=== PATIENT | male | born 1985 | race African-American/Black ===

== ENCOUNTER 2021-08-01 17:31 | Emergency (ER) | payer MEDICAID ==
[~2021-08-01] VITALS: Ht 190.5 cm; Wt 92.1 kg
--- NOTE | 2021-08-01 17:38 | NUR ---
[facility] RA97 FRM HOME, ETOH, LAST DRANK 36-48 HRS AGO. GIRLFRIEND CALLED FOR A WITNESSED SEIZURE. PATIENT STATES "I DON'T REMEMBER ANYTHING". TO ER BED 2, HOOKED TO MONITOR, NOTED TACHYCARDIC, NOTED DIAPHORETIC. NOTED W IV PERIPHERAL LINE LAC 18G PATENT AND FLUSHING, SEIZURE PREC APPLIED. CHANGED TO HOSP [facility], AWAITING MD HOPKINS
--- NOTE | 2021-08-01 17:40 | NUR ---
DR SHARP AT BEDSIDE
[2021-08-01] MEDS ORDERED: LORAZEPAM INJ 2 MG/ML VIAL ONE (17:58)
[2021-08-01] MEDS ORDERED: LORAZEPAM INJ 2 MG/ML VIAL IV ONE (18:00)
[2021-08-01] MEDS ORDERED: LEVETIRACETAM (500MG) 500 MG in IV NS 0.9% 100 ML IV ONE (18:00)
[2021-08-01 18:10] LABS: BASOPHILS % (AUTO) 0.5 % (0.0-2.0); EOSINOPHILS % (AUTO) 0.1 % (0.0-6.0); HEMATOCRIT 40 % (39-51); HEMOGLOBIN 13.4 g/dL (13.5-17.5); LYMPHOCYTES # (AUTO) 0.9 K/uL (0.8-4.8); LYMPHOCYTES % (AUTO) 20.8 % (20.0-44.0); MEAN CORPUSCULAR HGB CONC 34 g/dl (31.0-36.0); MEAN CORPUSCULAR VOLUME 101 fL (80-96); MONOCYTES # (AUTO) 0.6 K/uL (0.1-1.30); MONOCYTES % (AUTO) 13.6 % (2.0-12.0); NEUTROPHILS # (AUTO) 2.7 K/uL (1.8-8.9); PLATELET COUNT (AUTO) 139 K/uL (150-450); RED BLOOD CELL COUNT(AUTO) 3.95 MIL/uL (4.5-6.0); WHITE BLOOD COUNT (AUTO) 4.1 K/uL (4.3-11.0)
--- NOTE | 2021-08-01 18:26 | NUR ---
SPOKE TO MOTHER ROGELIO AUGUSTE [phone]
[2021-08-01 18:44] LABS: ALBUMIN 4.4 g/dL (3.4-5.0); BILIRUBIN,DIRECT 0.3 mg/dL (0.0-0.2); CREATININE 1.2 mg/dL (0.6-1.3); POTASSIUM 3.1 mmol/L (3.5-5.1); TOTAL PROTEIN, SERUM 8.7 g/dL (6.4-8.2)
--- NOTE | 2021-08-01 19:32 | NUR ---
RECEIVED REPORT FROM MICAH YANEZ FOR [facility]
--- NOTE | 2021-08-01 19:34 | NUR ---
PATIENT NOT ABLE TO PROVIDE URINE SAMPLE, MADE AWARE
--- NOTE | 2021-08-01 19:35 | NUR ---
PT RESTING COMFORTABLY IN BED, DENIES ANY PAIN AT THIS TIME. WILL CONTINUE TO MONITOR.
--- NOTE | 2021-08-01 19:48 | NUR ---
URINE SAMPLE COLLECTED AND SENT TO LAB
[2021-08-01 20:40] LABS: CALCIUM, SERUM 9.7 mg/dL (8.5-10.1)
[2021-08-01] MEDS ORDERED: CHLO25CA22 PO (20:54)
[2021-08-01 21:05] VITALS: BP 135/77
--- NOTE | 2021-08-01 21:05 | NUR ---
Patient discharged to home in stable condition. Written and verbal after care instructions given. Patient verbalizes understanding of instruction.
[2021-08-02] MEDS ORDERED: CHLO25CA22 PO (11:34)
== END 2021-08-01 21:24 | disposition home or self-care (01) ==
LOC: ER 17:35
DX: G40.409 Other generalized epilepsy and epileptic syndromes, not intractable, without status epilepticus (principal); F10.139 Alcohol abuse with withdrawal, unspecified; Z79.899 Other long term (current) drug therapy; Y90.9 Presence of alcohol in blood, level not specified
CPT/HCPCS: 36415; 70450; 71045; 80048; 80076; 80307; 85025; 85730; 93005; 96365; 96375; 99285; J1953; J2060; J7030

== ENCOUNTER 2021-08-02 10:43 | Emergency (ER) | payer MEDICAID ==
[~2021-08-02] VITALS: Ht 190.5 cm; Wt 91.6 kg
[~2021-08-02 10:43] MED LIST: CHLO25CA22 PO
[2021-08-02 10:56] VITALS: BP 135/88
[2021-08-02] MEDS ORDERED: CHLO25CA22 PO (11:34)
--- NOTE | 2021-08-02 11:39 | NUR ---
Patient discharged to home in stable condition. Written and verbal after care instructions given. Patient verbalizes understanding of instruction.
== END 2021-08-02 11:38 | disposition home or self-care (01) ==
LOC: ER 10:45
DX: F10.139 Alcohol abuse with withdrawal, unspecified (principal); Z76.0 Encounter for issue of repeat prescription; Z79.899 Other long term (current) drug therapy; Y90.9 Presence of alcohol in blood, level not specified